=== PATIENT | male | born 1985 | race Caucasian/White ===

== ENCOUNTER 2018-05-03 12:42 | Emergency (ER) | payer SELFPAY ==
[~2018-05-03] VITALS: Ht 170.2 cm; Wt 80.0 kg
[2018-05-03 12:54] VITALS: BP 144/78
[2018-05-03] MEDS ORDERED: IBUPROFEN 600 MG TABLET PO ONE (13:45)
[2018-05-03] MEDS ORDERED: METHOCARBAMOL 500 MG TABLET PO ONE (13:45)
== END 2018-05-03 13:55 | disposition home or self-care (01) ==
LOC: EMS 12:44
DX: S39.012A Strain of muscle, fascia and tendon of lower back, initial encounter (principal); R03.0 Elevated blood-pressure reading, without diagnosis of hypertension; X50.0XXA Overexertion from strenuous movement or load, initial encounter; Y93.89 Activity, other specified; Y92.89 Other specified places as the place of occurrence of the external cause; Y99.8 Other external cause status